=== PATIENT | female | born 1980 | race Two or more races ===

== ENCOUNTER 2016-09-14 02:01 | Emergency (ER) | payer MEDICAID, OTHER ==
[~2016-09-14] VITALS: Ht 167.6 cm; Wt 95.3 kg
[2016-09-14 02:53] LABS: Basophils # (auto) 0 uL; DEFINITIVE VIEW TRANSMISSION; Eosinophils # (auto) 0.1 uL; Eosinophils % (auto) 0.6 % (0.0-7.0); Hematocrit 45.5 % (36.0-46.0); Hemoglobin 14.6 g/dL (12.2-16.2); Lymphocytes # (auto) 1.1 uL; Lymphocytes % (auto) 7.4 % (10.0-50.0); Mean Corpuscular Hemoglobin 26.8 pg (28.0-32.0); Mean Corpuscular Volume 83.6 fL (80.0-100.0); Mean Platelet Volume 9.7 fL (7.4-10.4); Monocytes # (auto) 0.6 uL; Monocytes % (auto) 4.1 % (0.0-12.0); Neutrophils # (auto) 13.4 uL; Neutrophils % (auto) 87.9 % (37.0-80.0); Platelet Count (auto) 330 10^3/uL (140-450); Red Cell Distribution Width 13.8 % (11.6-16.0); White Blood Cell 15.3 10^3/uL (4.4-10.8)
[2016-09-14 03:11] LABS: Albumin 3.1 g/dL (3.4-5.0); BUN/Creatinine Ratio 12.7; Calcium 8.3 mg/dL (8.5-10.1); Potassium 3.4 mmol/L (3.5-5.1)
[2016-09-14 03:14] LABS: Total Protein 7.4 g/dL (6.4-8.2)
[2016-09-14] MEDS ORDERED: SODIUM CHLORIDE 0.9% 1,000 ML IV ONE (04:45)
[2016-09-14] MEDS ORDERED: HYDROmorphone HCL 2 MG/ML VL IV ONE ×3 (04:45→09:30)
[2016-09-14] MEDS ORDERED: ONDANSETRON HCL 4 MG/2 ML VIAL IV ONE ×3 (04:45→09:30)
[2016-09-14 06:49] LABS: Urine Color Yellow (Yellow); Urine Glucose Normal (Normal); Urine Mucus FEW (None Seen); Urine Nitrite Negative (Negative); Urine RBC 4 /hpf (0 - 4); Urine Squamous Epithelial Cell FEW /hpf (<5); Urine pH 5.5 (5.0-8.0)
[2016-09-14 06:50] LABS: Urine Blood 1+ /uL (Negative); Urine Ketone 2+ (Negative)
[2016-09-14 06:51] LABS: Urine Bilirubin 1+ (Negative)
[2016-09-14] MEDS ORDERED: KETOROLAC TROMETH 30 MG/ML 1ML VIAL IV ONE (09:30)
[2016-09-14 10:09] VITALS: BP 128/67
== END 2016-09-14 10:44 | disposition short-term general hospital (02) ==
LOC: ER 02:01
DX: K85.90 Acute pancreatitis without necrosis or infection, unspecified (principal); Z90.49 Acquired absence of other specified parts of digestive tract
CPT/HCPCS: 36415; 74176; 80053; 81001; 81025; 82150; 83605; 83690; 84702; 85025; 96361; 96374; 96375; 96376; 99285; J1170; J1885; J2405